=== PATIENT | female | born 1990 | race Hispanic/Latino ===

== ENCOUNTER 2017-03-18 21:32 | Day surgery (SDC) | payer MEDICAID, OTHER ==
[2017-03-18 21:59] VITALS: BMI 24.7
--- NOTE | 2017-03-18 22:07 | PDOC.LDPN ---
Labor & Delivery Progress Note - Subjective Subjective: comfortable (Patient is a 26 year old (prior SVDs), patient of Dr Ewing, here with c/o vaginal white dsch with itching. No rom, no ag bleed reported. No contractions. Denies any complications.), other (Patient is a 26 year old (prior SVDs), patient of Dr Ewing, here with c/o vaginal white dsch with itching. No rom, no vag bleed reported. No contractions. Denies any complications.) - Objective Vital signs reviewed and normal: yes General: NAD Uterine fundus: non tender Other exam findings: FHTs 150s on doppler. No contractions noted. Procedures: VP3 pending (will be collected) - Assessment (1) Vaginal discharge during Code(s): O26.899 - OTH RELATED CONDITIONS, UNSPECIFIED TRIMESTER; N89.8 - OTHER SPECIFIED NONINFLAMMATORY DISORDERS OF VAGINA Current Visit: Yes Status: Acute Plan: continue plan of care (We will collect a VP3 for now. No evidence of labor or compromise at this time. )
--- NOTE | 2017-03-18 22:22 | PDOC.EVN ---
Event Note - Event Note Event Note: 03/18/2017 at 2220: H&P addendum. Patient on Mekena (progesterone injections) for HX PTL. Last injection was last Sunday. White dsch noted on exam. No evidence of ROM clinically. CX exam deferred due to her external vulvar irritation. Vulva with slight labial swelling and white dsch. I suspect licha but will await VP3 results for now.
--- NOTE | 2017-03-18 23:23 | PDOC.EVN ---
Event Note - Event Note Event Note: @2320: VP3 with BV and licha. Will give RX for Diflucan and oral Flagyl. NOTE: Patient had prior BTL and now with subsequent IUP. Ok for dsch.
== END 2017-03-18 23:30 | disposition home or self-care (01) ==
LOC: L&D/OP 21:32
PROVIDERS: ATTEND Obstetrics & Gynecology
DX: O26.899 Other specified pregnancy related conditions, unspecified trimester (principal); N89.8 Other specified noninflammatory disorders of vagina; Z79.899 Other long term (current) drug therapy
CPT/HCPCS: 87480; 87510; 87660

== ENCOUNTER 2017-05-24 22:44 | Emergency (ER) | payer OTHER ==
[2017-05-25] MEDS ORDERED: Lidocaine 1% PF 5 ML VIAL ONE ×2 (02:20→02:42)
== END 2017-05-25 03:14 | disposition home or self-care (01) ==
LOC: ERS 22:44
DX: L60.0 Ingrowing nail (principal)
CPT/HCPCS: 11765; J2001

== ENCOUNTER 2017-06-27 13:47 | Day surgery (SDC) | payer OTHER ==
--- NOTE | 2017-06-27 14:37 | PDOC.EVN ---
Event Note - Event Note Event Note: Triage @ 1430: Called to see patient of Dr Ewing for decreased FM. HPI: 27 yo with HX deliveries at 36 weeks, now at 36 weeks, here for decreased FM. NO VB, No CTX. Otherwisw well. No CS HX Review of Systems: Complete ROS done and negative excepr per HPI Med HX: none Surgical HX: none Allergies: none OB HX: Hx at 36 weeks PHYSICAL: 111/70 [id number] O2 sat 100% Monitors: FHTs cat 1, normal. No CTX on toco CX: pending Assessment/Plan: Decreased FM at 36 weeks IV hydrate for conservative care NST CX check No evidence PTL at this time Obs for now
[2017-06-27] MEDS ORDERED: Lactated Ringer's 1,000 ML IV SCH (14:45)
[2017-06-27 15:11] VITALS: BP 107/70; TEMP 97.6
--- NOTE | 2017-06-27 15:40 | PDOC.EVN ---
Event Note - Event Note Event Note: @1520: patient states feeling more contractions. It has been about 1 hour since last check. We will check CX in 1 hour to give time to change if early labor. Pain meds prn.
--- NOTE | 2017-06-27 17:09 | PDOC.EVN ---
Event Note - Event Note Event Note: Triage follow up: late entry: At approx 1640: patient was reassessed by me at bedside. No cervical change from 1cm. Cat 1 strip on monitors. Ok for outpatient follow up. Has Dr Ewing appointment on Sunday this week in 48 hours. Vitals reviewed...wnl and stable.
== END 2017-06-27 17:13 | disposition home or self-care (01) ==
LOC: L&D/OP 13:47
PROVIDERS: ATTEND Family Medicine
DX: O36.8130 Decreased fetal movements, third trimester, not applicable or unspecified (principal); O99.89 Other specified diseases and conditions complicating pregnancy, childbirth and the puerperium; R10.11 Right upper quadrant pain; Z3A.36 36 weeks gestation of pregnancy; Z98.51 Tubal ligation status
CPT/HCPCS: 96360; 96361; 99282

== ENCOUNTER 2017-07-08 18:11 | Day surgery (SDC) | payer OTHER ==
[2017-07-08 18:37] VITALS: BP 127/72; TEMP 98.9; BMI 28.3
[2017-07-08] MEDS ORDERED: Morphine 10 MG/ML VIAL ONE (21:46)
[2017-07-08] MEDS ORDERED: Morphine 10 MG/ML VIAL IM SCH (22:00)
--- NOTE | 2017-07-09 06:04 | PRG ---
DATE OF SERVICE: 07/08/2017 OB ER ENCOUNTER PRIMARY OB: Dr. Caban. CHIEF COMPLAINT: Abdominal pains. HISTORY OF PRESENT ILLNESS: The patient is a 27-year-old female with an intrauterine at 38 weeks and 2 days, who is presenting to Labor and Delivery with abdominal pains that began sav ier today about 3 o'clock. She reports them as moderately severe. She denies any leakage of fluid o r any vaginal bleeding. She does report she has been having a mucousy discharge. The patient denies any complications with this any fever, fall, headache, chest pain, shortness of breath. S he has had some nausea. Denies vomiting. Denies diarrhea or constipation. Denies any skin rash any urinary urgency. PAST MEDICAL HISTORY: Negative. PAST SURGICAL HISTORY: She had a tubal ligation in 2016. OBSTETRIC HISTORY: She has had 3 term spontaneous vaginal deliveries at 36 weeks. ALLERGIES: No known drug allergies. SOCIAL HISTORY: Denies drug, alcohol or tobacco use. MEDICATIONS: She had been on Julissa, which has since been discontinued and vitamins. OB LABS: Blood type is O positive, antibody screen is negative. HIV is nonreactive. RPR is nonreac tive. Hepatitis B surface antigen is nonreactive. She is rubella immune. Hepatitis C antibody is n onreactive. Her GBS testing is unknown at this time. One hour Glucola was 99. REVIEW OF SYSTEMS: She is GBS positive. PHYSICAL EXAMINATION: VITAL SIGNS: Blood pressure is 116/75, heart rate is 73, respiratory rate of 18, satting 100% on lizbet m air, temperature 98.9. GENERAL: She appears to be in no acute distress. She is alert and oriented, and cooperative and ple asant to interact with. HEAD: Normocephalic, atraumatic. LUNGS: Clear to auscultation bilaterally. HEART: Regular rate and rhythm. ABDOMEN: Soft and nontender between contractions. EXTREMITIES: Nontender, nonedematous. Her cervical exam is 350 and -3 station, which is a change from her last visit about 11 days ago, whe n it was 130 and -3. Repeat exam after 2 hours is unchanged. heart tracing performed for threatened labor abdominal pains. Baseline is noted to be in the 1 30s with moderate long-term variability, positive accelerations, no decelerations. Contractions are irregular, lasting from 5-8 minutes. ASSESSMENT AND PLAN: The patient is a 27-year-old female with an intrauterine at 38 weeks and 2 days and history of delivery at 36 weeks, who is having term contractions has had unchang ed cervix at 3 and 50. The patient lives only about 5 minutes from here and is comfortable going hi e. She has been given instructions to return once her contractions are more regular and more intense . She has asked for some pain medication, will be given 6 mg of morphine IM. Fetus had other catego ry 1 tracing and reactive NST and the patient is GBS positive.
== END 2017-07-08 22:10 | disposition home or self-care (01) ==
LOC: L&D/OP 18:11
PROVIDERS: ATTEND Obstetrics & Gynecology
DX: O99.89 Other specified diseases and conditions complicating pregnancy, childbirth and the puerperium (principal); R10.9 Unspecified abdominal pain; O99.820 Streptococcus B carrier state complicating pregnancy; Z3A.38 38 weeks gestation of pregnancy; Z79.899 Other long term (current) drug therapy
CPT/HCPCS: J2270

== ENCOUNTER 2017-07-09 10:09 | Inpatient (IN) | payer OTHER ==
[2017-07-09] MEDS ORDERED: Penicillin G Potassium 5 MILL.UNITS VIAL ONE (10:42)
[2017-07-09] MEDS ORDERED: Bupivacaine 0.5% 20 ML, Fentanyl 400 MCG in Sodium Chloride 0.9% 72 ML EPIDURAL SCH (11:00)
[2017-07-09] MEDS ORDERED: Lidocaine 1% (PF) 30 ML VIAL ONE (11:03)
[2017-07-09] MEDS ORDERED: LR / Pitocin 40 units/1000 ml 1,000 ML ONE (11:04)
[2017-07-09 11:08] VITALS: BMI 28.3
[2017-07-09] MEDS ORDERED: Promethazine HCl 25 MG/ML VIAL IM PRN ×2 (11:08→13:48)
[2017-07-09] MEDS ORDERED: Ondansetron HCl/PF 4 MG/2 ML Vial IVP PRN ×2 (11:08→13:48)
[2017-07-09] MEDS ORDERED: Lidocaine 1% (PF) 30 ML VIAL SC PRN (11:08)
[2017-07-09] MEDS ORDERED: LR / Pitocin 40 units/1000 ml 1,000 ML IV PRN (11:08)
[2017-07-09] MEDS ORDERED: Carboprost 250 MCG/ML AMP IM PRN (11:08)
[2017-07-09] MEDS ORDERED: Meperidine HCl/PF 25 MG/ML VIAL IM/IV PRN (11:08)
[2017-07-09] MEDS ORDERED: Diphenoxylate HCl/Atropine Tablet PO PRN (11:08)
[2017-07-09] MEDS ORDERED: LR 500 ML/Oxytocin 10 units 500 ML IV SCH (11:08)
[2017-07-09] MEDS ORDERED: Ibuprofen 800 MG TAB PO PRN (11:08)
[2017-07-09] MEDS ORDERED: HYDROcodone/Acetaminophen 5/325 mg Tablet PO PRN ×2 (11:08)
[2017-07-09] MEDS ORDERED: Lactated Ringer's 1,000 ML IV SCH ×2 (11:08)
[2017-07-09] MEDS ORDERED: Penicillin G Potassium 5 MILL.UNITS in Sodium Chloride 0.9% 100 ML IVPB SCH (11:08)
[2017-07-09 11:26] LABS: Mean Corpuscular HGB CONC 31.6 g/dL (32.0-36.0); Mean Corpuscular Hemoglobin 22.5 pg (27.0-31.0); Mean Corpuscular Volume 71.2 fl (81.0-99.0); Mean Platelet Volume 10.6 fL (7.4-10.4); Platelet Count 261 thou/uL (130-400); RBC Distribution Width 16.8 % (11.5-14.5); White Blood Cell (WBC) Count 12.9 thou/uL (4.8-10.8)
--- NOTE | 2017-07-09 11:37 | PDOC.LDHP ---
Labor and Delivery H&P Chief complaint: contractions HPI: 27 yo @ 38w3d by LMP c/w 12 week sono who presents in active labor. Denies any LOF. Reports some VB. Antepartum course complicated by h/o PTD x2, was given 17 OHP weekly during this . Current gestational age (weeks): 38 Due date: 07/20/17 Dating criteria: last menstrual period Grav: 4 Para: 3 OB History Details: H/O 2 SVDs @ 36 weeks Current complications: none Abnormal US findings: No Past Medical History: Denies Current medications: none Previous surgical history: other (BTL in 2017) Allergies/Adverse Reactions: Allergies Allergy/AdvReac Type Severity Reaction Status Date / Time No Known Allergies Allergy Verified 06/27/17 14:47 Social history: none - Physical Exam Vital signs reviewed and normal: yes General: breathing through contractions Heart: RRR Lungs: nonlabored breathing Abdomen: gravid Extremeties: no edema FHT: category 2 (130s, mod marga, +accels, variable decels) [place] contractions every: q2-4 min - Vaginal Exam cm dilated: 8 (cephalic) Effacement: 100% Station: -1 - OB Labs Blood type: O RH: positive Antibody Screen: negative HIV: negative RPR: negative HEPSAg: negative 1 hour GCT: negative GBS: positive Urine drug screen: not done - Assessment 38w3d IUP Active labor GBS + - Plan Plan: admit to L&D, GBS antibiotic prophylaxis, informed consent obtained, anesthesia consult for pain management
[2017-07-09 12:08] LABS: Syphilis Antibody Nonreactive (Nonreactive); Syphilis Antibody Index 0.04 S/CO (<1.00 Non-Reactive)
[2017-07-09 12:29] LABS: HBSAg Index 0.18 S/CO (0-0.99); Hep B Surf Ag Non-Reactive S/CO (NonReactive)
[2017-07-09] MEDS ORDERED: Penicillin G 2.5 MILL.units 2.5 MILL.UNITS in Premix Bag 1 BAG IVPB SCH (13:00)
--- NOTE | 2017-07-09 13:04 | PDOC.OPDEL ---
OB Operative/Delivery Note Delivery Dr/Surgeon: Bella Caban DO Pre-Delivery Diagnosis: active labor Procedure/Post Delivery Dx: spontaneous vaginal delivery Weeks gestation: 38 Anesthesia: epidural - Findings A Sex: female - 1 min: 9 - 5 min: 9 - Additional Findings/Plan Placenta delivered: spontaneous Repaired Obstetrical Laceration: none Estimated blood loss: 250 cc Compilations/Other Findings: Infant delivered in ARLENE position. True knot in cord x1. Post delivery plan: routine recovery
[2017-07-09] MEDS ORDERED: ePHEDrine/0.9% NaCl/PF SYRINGE 50 mg/10 ml SLOW IVP PRN (13:48)
[2017-07-09] MEDS ORDERED: Lactated Ringer's 500 ML IV PRN (13:48)
[2017-07-09] MEDS ORDERED: Naloxone HCl 0.4 mg/ml Vial IVP PRN ×2 (13:48)
[2017-07-09] MEDS ORDERED: Acetaminophen 325 MG TAB PO PRN (13:48)
[2017-07-09] MEDS ORDERED: diphenhydrAMINE 50 MG/ML VIAL IVP PRN (13:48)
[2017-07-09] MEDS ORDERED: Eucerin (Mineral Oil/Petrolatum,White) 30 gm Jar TOP PRN (13:48)
[2017-07-09] MEDS ORDERED: Communication Order-Pharmacy FS SCH (14:00)
[2017-07-09] MEDS ORDERED: Fentanyl 4mcg/Marcaine 0.1% Cassette 100 ML EPIDURAL SCH (14:00)
[2017-07-09] MEDS ORDERED: Milk Of Magnesia 30 ML UDCUP PO PRN (16:55)
[2017-07-09] MEDS ORDERED: Bisacodyl 10 MG SUPP PR PRN (16:55)
[2017-07-09] MEDS ORDERED: Benzocaine/Menthol 20-0.5% 60 ML CAN TOP PRN (16:55)
[2017-07-09] MEDS ORDERED: Methylergonovine 0.2 MG/ML VIAL IM PRN (16:55)
[2017-07-09] MEDS ORDERED: Adacel (T-DAP) 0.5 ML VIAL IM ONE (16:55)
[2017-07-09] MEDS ORDERED: Lanolin Ointment 7 GM TUBE TOP PRN (16:55)
[2017-07-09] MEDS ORDERED: LR / Pitocin 40 units/1000 ml 1,000 ML IV SCH (16:55)
[2017-07-09] MEDS: traMADol HCl 50 MG TAB PO PRN (18:38)
[2017-07-09] MEDS: Docusate Calcium (SURFAK) 240 MG CAP PO SCH (21:36)
[2017-07-09] MEDS: Ibuprofen 800 MG TAB PO SCH (21:36)
[2017-07-10] MEDS: traMADol HCl 50 MG TAB PO PRN ×3 (00:08→21:36)
[2017-07-10] MEDS: Ibuprofen 800 MG TAB PO SCH ×3 (04:38→21:37)
[2017-07-10] MEDS ORDERED: Lidocaine 2% MPF 10 ML AMP (For Epidural Use) ONE (08:09)
--- NOTE | 2017-07-10 08:14 | PDOC.PP ---
Post Progress Note Post Day #: 1 Subjective: PPD1, breast feeding, min discomfort, normal lochia appreciated PO intake tolerated: yes Flatus: yes Ambulation: yes Vital Signs (12 hours) Temp Pulse Resp BP 07/10/17 07:44 97.8 F 72 20 105/58 L 07/10/17 04:35 97.4 F L 71 16 112/65 07/10/17 00:00 97.7 F 79 16 121/58 L Weight Weight 150 lb - Physical Examination General: NAD Respiratory: non-labored breathing Abdominal: no distention Fundus firm & at: below umb Extremities: negative homans (B) Skin: no rash Neurological: no gross focal deficits Psychiatric: A&Ox3, normal affect Result Diagrams: 07/09/17 11:21 Additional Labs: Post Labs Blood Type O POSITIVE 07/09/17 11:21 Hep Bs Antigen Non-Reactive S/CO (NonReactive) 07/09/17 11:21 (1) Vaginal delivery Code(s): O80 - ENCOUNTER FOR FULL-TERM UNCOMPLICATED DELIVERY Status: Acute - Assessment/Plan A/P: PPD 1, plan for DC tomorrow secondary to GBS+.
[2017-07-10] MEDS ORDERED: FLU VACC QS2017-18 36 mo. & older 0.5 ML SYRINGE IM ONE (09:00)
[2017-07-10] MEDS: Docusate Calcium (SURFAK) 240 MG CAP PO SCH ×2 (09:15→21:37)
[2017-07-10] MEDS: Prenatal Vitamin 1 TAB PO SCH (09:15)
[2017-07-11] MEDS: traMADol HCl 50 MG TAB PO PRN (06:30)
[2017-07-11] MEDS: Ibuprofen 800 MG TAB PO SCH (06:31)
--- NOTE | 2017-07-11 07:46 | PDOC.PP ---
Post Progress Note Post Day #: 2 Subjective: Doing well. Pain and lochia minimal. Breast feeding. PO intake tolerated: yes Flatus: yes Ambulation: yes Vital Signs (12 hours) Temp Pulse Resp BP 07/10/17 20:00 97.7 F 69 18 103/53 L Weight Weight 150 lb - Physical Examination General: NAD Cardiovascular: RRR Respiratory: non-labored breathing Abdominal: no distention, appropriately TTP Fundus firm & at: below umbilicus Extremities: negative homans (B) Neurological: no gross focal deficits Psychiatric: A&Ox3, normal affect Result Diagrams: 07/09/17 11:21 Additional Labs: Post Labs Blood Type O POSITIVE 07/09/17 11:21 Hep Bs Antigen Non-Reactive S/CO (NonReactive) 07/09/17 11:21 (1) Vaginal delivery Code(s): O80 - ENCOUNTER FOR FULL-TERM UNCOMPLICATED DELIVERY Status: Acute - Assessment/Plan PPD #2 doing well. D/C home when discharged. F/U 6 weeks.
[2017-07-11] MEDS: Docusate Calcium (SURFAK) 240 MG CAP PO SCH (08:13)
[2017-07-11] MEDS: Prenatal Vitamin 1 TAB PO SCH (08:13)
[2017-07-11 10:17] VITALS: TEMP 98.1
[2017-07-11 10:43] VITALS: BP 100/67
== END 2017-07-11 10:25 | disposition home or self-care (01) | DRG 775 ==
LOC: L&D/OP 10:09 → L&D 10:38 → 3SW 15:44
PROVIDERS: ADMIT Obstetrics & Gynecology; ATTEND Obstetrics & Gynecology
PROC: 10E0XZZ Delivery of Products of Conception, External Approach (ICD-10-PCS; principal; 2017-07-09)
DX: O99.824 Streptococcus B carrier state complicating childbirth (principal); O69.2XX0 Labor and delivery complicated by other cord entanglement, with compression, not applicable or unspecified; Z3A.38 38 weeks gestation of pregnancy; Z37.0 Single live birth; Z79.899 Other long term (current) drug therapy; O99.820 Streptococcus B carrier state complicating pregnancy; R10.9 Unspecified abdominal pain
CPT/HCPCS: 51702; 85027; 86780; 87340; 99283; 99285; J2001; J2210; J2270; J2540; J3010; J3490; J7050

== ENCOUNTER 2018-07-22 19:04 | Emergency (ER) | payer BC, OTHER ==
[2018-07-22] MEDS ORDERED: Dexamethasone 4 mg/ml Vial ONE (20:01)
[2018-07-22 20:20] LABS: Bilirubin Negative (Negative); Blood, Urine Negative (Negative); Clarity CLEAR (Clear); Glucose, Urine (Dipstick) Negative (Negative); Leukocyte Negative (Negative); Nitrite Negative (Negative); Protein, Urine (Dipstick) Negative (Neg-Trace); Specific Gravity, Urine 1.024 (1.002-1.036)
[2018-07-22 20:21] LABS: Pregnancy Test - Urine (BHCG) Negative (Negative); Pregu Control Background? CLEAR/WHITE (CLR/WHITE); Pregu Control Bar Appear? YES (CONTROL BAR); Specific Gravity 1.024 (1.002-1.036)
== END 2018-07-22 21:21 | disposition home or self-care (01) ==
LOC: ERS 19:04
DX: J02.9 Acute pharyngitis, unspecified (principal); F32.9 Major depressive disorder, single episode, unspecified
CPT/HCPCS: 81003; 81025; 87081; 87086; 87430; 87804; 99283; J1100